=== PATIENT | male | born 1945 | race Caucasian/White ===

== ENCOUNTER → 2018-03-03 | Outpatient (CLI) | payer MEDICARE ==
[2016-12-15 10:20] VITALS: BMI 26.4
[~2018-03-03] MED LIST: ALL100 PO; AMLO-113 PO; ASPI-1471 PO; ASPI-764 PO; BETH25TA29 PO; CHOL10005 PO; CIP500 PO; CIPR-344 PO; CITA-145 PO; DOC100 PO; LISI-357 PO; LOR5 PO; LOSA-44 PO; LOSA-57 PO; METO25TA23 PO; NEBI20TA4 PO; ONDA4TAB PO; OXYC-865 PO; PHENA200 PO; TAM4 PO; TAMS0.4C70 PO; TOLT4CAP13 PO
--- NOTE | 2018-03-03 17:51 | RADIOLOGY IMAGING REPORT ---
FACILITY: [facility] [place] PATIENT NAME: Aryan Rooney : 1945 MR: [id number] V: [id number] EXAM DATE: ORDERING PHYSICIAN: MARA SHELDON TECHNOLOGIST: Location: [facility] Patient: Aryan Rooney : 1945 Visit/Account:[id number] Date of Sevice: 03/03/2018 VENOUS DOPP LOW RIGHT EXTREMIT HISTORY: Pain after fall, possible spider bite COMPARISON: None. FINDINGS: Grayscale, duplex and color Doppler interrogation of the lower extremity deep veins from common femor al vein to proximal calf was completed. The greater saphenous vein in the proximal thigh was evaluate d using similar technique. Common femoral vein - Negative. Femoral vein - Negative. Deep femoral vein - Negative. Popliteal vein - Negative. Visualized deep calf veins - Negative. Popliteal fossa: Negative. Greater saphenous vein in the proximal thigh: Negative. IMPRESSION: Negative right lower extremity venous ultrasound Report Dictated By: Roberth Porter at 03/03/2018 5:46 PM Report E-Signed By: Roberth Porter at 03/03/2018 5:47 PM WSN:[id number]
--- NOTE | 2018-03-03 18:00 | RADIOLOGY IMAGING REPORT ---
FACILITY: [facility] [place] PATIENT NAME: Aryan Rooney : 1945 MR: [id number] V: [id number] EXAM DATE: ORDERING PHYSICIAN: MARA SHELDON TECHNOLOGIST: Location: [facility] Patient: Aryan Rooney : 1945 Visit/Account:[id number] Date of Sevice: 03/03/2018 Exam: SOFT TISSUE NON-SPECIFIC Indication: , Pain and swelling over the right posterior calf, possible spider bite Comparison: None available Findings: Within the subcutaneous tissues, there is a lobulated fluid collection that measures 1.2 x 1.5 x 0.9 cm. No underlying mass is identified. The fluid collection is confined to the subcutaneous fat and does not involve the muscle bed. IMPRESSION: 1. Small 1.2 x 1.5 cm subcutaneous fluid collection. This could represent a small seroma, hematoma o r abscess. Correlate with site of suspected spider bite. Report Dictated By: Roberth Porter at 03/03/2018 5:54 PM Report E-Signed By: Roberth Porter at 03/03/2018 5:56 PM WSN:[id number]
== END ==
LOC: US 16:40
PROVIDERS: ATTEND Family Medicine
DX: R22.41 Localized swelling, mass and lump, right lower limb (principal)
CPT/HCPCS: 76999